=== PATIENT | female | born 1995 | race African-American/Black ===

== ENCOUNTER 2018-10-02 07:18 | Inpatient (IN) | payer MEDICAID ==
[2018-10-02] MEDS ORDERED: Lidocaine 1% 50 ML MDV INJECT ONE (07:36)
[2018-10-02] MEDS ORDERED: Ondansetron 4 MG/2 ML SDV IVPUSH PRN (07:36)
[2018-10-02] MEDS ORDERED: Sodium Chloride 0.9% 10 ML Syringe FLUSH PRN (07:36)
[2018-10-02] MEDS ORDERED: Oxytocin/Lactated Ringers 10 UNIT/1,000 ML BAG IV SCH ×2 (07:45)
[2018-10-02] MEDS: Lactated Ringers 1,000 ML IV SCH ×2 (08:00→17:38)
[2018-10-02] MEDS ORDERED: Diphtheria,Pertussis(Acell),Tetanus Vaccine 0.5 ML SDV IM ONE (09:01)
[2018-10-02] MEDS ORDERED: ePHEDrine 50 MG/ML SDV IVPUSH PRN (11:04)
[2018-10-02] MEDS ORDERED: diphenhydrAMINE 50 MG/ML SDV IVPUSH PRN (11:04)
--- NOTE | 2018-10-02 11:10 | PCM.PREANE ---
Preanesthetic Assessment - Procedure Proposed Procedure: mana - Anesthesia/Transfusion/Family Hx Anesthesia History: No Prior Anesthesia Family History of Anesthesia Reaction: No Transfusion History: No Prior Transfusion(s) - Review of Systems General: No Symptoms Pulmonary: No Symptoms Cardiovascular: No Symptoms Gastrointestinal: No Symptoms Neurological: No Symptoms Other: Reports: None - Physical Assessment Vital Signs: Last Vital Signs Temp 97.0 F 10/02/18 07:36 Pulse 107 H 10/02/18 07:36 Resp 18 10/02/18 07:36 BP 128/82 10/02/18 07:36 Pulse Ox 100 10/02/18 07:36 Height: 5 ft 3 in Weight: 69.428 kg ASA Class: 2 Mental Status: Alert & Oriented x3 Airway Class: Mallampati = 1 Dentition: Reports: Normal Dentition Thyro-Mental Finger Breadths: 3 Mouth Opening Finger Breadths: 3 ROM/Head Extension: Full Lungs: Clear to Auscultation, Normal Respiratory Effort Cardiovascular: Regular Rate, Regular Rhythm - Lab Values: Laboratory Last Values WBC 7.14 K/mm3 (3.98-10.04) 10/02/18 07:48 RBC 3.65 M/mm3 (3.98-5.22) L 10/02/18 07:48 Hgb 10.8 gm/L (11.2-15.7) L 10/02/18 07:48 Hct 31.5 % (34.1-44.9) L 10/02/18 07:48 MCV 86.3 fl (79.4-94.8) 10/02/18 07:48 MCH 29.6 pg (25.6-32.2) 10/02/18 07:48 MCHC 34.3 g/dl (32.2-35.5) 10/02/18 07:48 RDW Std Deviation 38.0 fL (36.4-46.3) 10/02/18 07:48 Plt Count 246 K/mm3 (182-369) 10/02/18 07:48 MPV 9.5 fl (9.4-12.3) 10/02/18 07:48 Neut % (Auto) 66.6 % (34.0-71.1) 10/02/18 07:48 Lymph % (Auto) 19.2 % (19.3-51.7) L 10/02/18 07:48 Howell % (Auto) 12.3 % (4.7-12.5) 10/02/18 07:48 Eos % (Auto) 1.4 (0.7-5.8) 10/02/18 07:48 Baso % (Auto) 0.1 % (0.1-1.2) 10/02/18 07:48 Neut # (Auto) 4.75 K/mm3 (1.56-6.13) 10/02/18 07:48 Lymph # (Auto) 1.37 K/mm3 (1.18-3.74) 10/02/18 07:48 Howell # (Auto) 0.88 K/mm3 (0.24-0.36) H 10/02/18 07:48 Eos # (Auto) 0.10 K/mm3 (0.04-0.36) 10/02/18 07:48 Baso # (Auto) 0.01 K/mm3 (0.01-0.08) 10/02/18 07:48 - Allergies Allergies/Adverse Reactions: Allergies Allergy/AdvReac Type Severity Reaction Status Date / Time No Known Allergies Allergy Verified 10/02/18 07:35 - Blood Blood Available: No - Acknowledgements Anesthesia Type Planned: Epidural Pt an Appropriate Candidate for the Planned Anesthesia: Yes Alternatives and Risks of Anesthesia Discussed w Pt/Guardian: Yes Pt/Guardian Understands and Agrees with Anesthesia Plan: Yes PreAnesthesia Questionnaire - Past Health History Medical/Surgical History: Denies Medical/Surgical History Cardiovascular History: Reports: None Respiratory History: Reports: None Gastrointestinal History: Reports: GERD SPRING BENDER History: Reports: : 1 (40 weeks) Para: 0 Musculoskeletal History: Reports: None Psychiatric History: Reports: None Oncologic (Cancer) History: Reports: None - History Comment History Comment: tums prn - SUBSTANCE USE Smoking Status *Q: Never Smoker Tobacco Use Within Last Twelve Months: No Second Hand Smoke Exposure: No Days Per Week of Alcohol Use: 0 Recreational Drug Use History: No - HOME MEDS Home Medications: Home Meds PNV95/Ferrous Fumarate/FA [ Tablet] 1 tab PO DAILY 10/02/18 [History] - CURRENT (IN HOUSE) MEDS Current Meds: Current Medications Lactated Ringer's (Ringers, Lactated) 1,000 mls @ 100 mls/hr IV ASDIRECTED NETO Last Admin: 10/02/18 08:00 Dose: 100 mls/hr Oxytocin/Lactated Ringer's (Pitocin In Lr 10 Units/1,000 Ml) 10 unit in 1,000 mls @ 100 mls/hr IV .CONTINUOUS NETO Oxytocin/Lactated Ringer's (Pitocin In Lr 10 Units/1,000 Ml) 10 unit in 1,000 mls @ 12 mls/hr IV TITRATE NETO; Protocol Last Titration: 10/02/18 10:56 Dose: 6 munits/min, 36 mls/hr Nalbuphine HCl (Nubain) 10 mg IVPUSH Q2H PRN PRN Reason: Pain Ondansetron HCl (Zofran) 4 mg IVPUSH Q4H PRN PRN Reason: Nausea/Vomiting Sodium Chloride (Saline Flush) 10 ml FLUSH ASDIRECTED PRN PRN Reason: Keep Vein Open Discontinued Medications Diphtheria/Tetanus/Acell Pertussis (Adacel) 0.5 ml IM .ONCE ONE Stop: 10/02/18 09:02 Lidocaine HCl (Xylocaine 1%) 50 ml INJECT ONETIME ONE Stop: 10/02/18 07:37
[2018-10-02] MEDS: Nalbuphine 10 MG/1 ML Vial IVPUSH PRN ×2 (13:55→16:58)
--- NOTE | 2018-10-02 18:00 | PCM.LDHP ---
L&D History of Present Illness - General Date of Service: 10/02/18 Admit Problem/Dx: Patient Status Order with Admit Dx/Problem 10/02/18 07:36 Patient Status [ADT] Routine Admission Diagnosis/Problem Admission Diagnosis/Problem 10/02/18 17:54 Melanie is a 22-year-old 1 para 0 -Uzbek female who is admitted for elective induction of labor at 40-2/7 weeks gestational age with an CARY of . Source of Information: Patient History Limitations: Reports: No Limitations - History of Present Illness Introduction:: Melanie is a 22-year-old 1 para 0 -Uz[place] female who is admitted for elective induction of labor at 40-2/7 weeks gestational age with an CARY of .Procedure induction of labor including risks, benefits, alternatives of care including line for natural onset of labor all discussed with patient. She appears understand and wishes to proceed. SLEEP TECH history: 1 para 0. CARY 09/30/2018 is based upon several early ultrasounds. Patient transferred care in to our clinic at approximately 37 weeks gestational age having moved from [place] to [place]. She reports no problems with her care. She reports her ultrasounds have supported her CARY of 09/30/2018. Her 1 hour GTT was normal. Her fundal height growth has been appropriate and her weight gain has been within normal limits. She desires a natural labor. Her group B strep screen was negative on 09/26/2018. She plans to breast-feed. Allergies: none Medications: vitamins daily Past medical history: Unremarkable. Past surgical history: Unremarkable Family history: Mother and father are alive and well. There are no abnormalities of bleeding, clotting, anesthesia, noted in the family. Social history: Patient is single. Her significant other is due Therese Hill. She lives in [place]. She does not work outside the home. She denies any significant amounts alcohol, drugs or tobacco. Review of systems: In general patient has no complaints. She reports good activity. Occasional contractions are noted. Skin: Negative Lungs: No infectious symptoms or shortness of breath Cardiovascular: No chest pain or exercise intolerance Breasts: No lumps, changes in size, pain, dimpling, discharge or axillary or supraclavicular concerns. Changes associated with only. GI: Negative : Increase in uterine size secondary to . Musculoskeletal: Negative Neurological: Negative In general the patient is well-developed, well-nourished, pleasant female of stated age in no acute distress. Skin is warm dry without lesions. HEENT, neck and back within normal limits. Lungs are clear with good breath sounds in all lung egan. Cardiovascular exam shows regular and rhythm without murmurs. Breast exam deferred. Abdomen is gravid. Fundal height on last evaluation in clinic was 39.5 cm. Baby in vertex presentation. Genital exam on admission shows cervix to be 2 cm, 70% effaced, soft, mid position, -3 station. Artificial rupture membranes is undertaken after short period of Pitocin induction. Clear amniotic fluid resulted. Extremities and neurological exam are grossly within normal limits. Pain Score: 10 - Related Data Allergies/Adverse Reactions: Allergies Allergy/AdvReac Type Severity Reaction Status Date / Time No Known Allergies Allergy Verified 10/02/18 07:35 Home Medications: Home Meds PNV95/Ferrous Fumarate/FA [ Tablet] 1 tab PO DAILY 10/02/18 [History] Past Medical History - Past Health History Medical/Surgical History: Denies Medical/Surgical History Cardiovascular History: Reports: None Respiratory History: Reports: None Gastrointestinal History: Reports: GERD SLEEP TECH History: Reports: Musculoskeletal History: Reports: None Psychiatric History: Reports: None Oncologic (Cancer) History: Reports: None - History Comment History Comment: tameka yang Social & Family History - Tobacco Use Smoking Status *Q: Never Smoker Second Hand Smoke Exposure: No - Caffeine Use Caffeine Use: Reports: Soda - Alcohol Use Days Per Week of Alcohol Use: 0 - Recreational Drug Use Recreational Drug Use: No H&P Review of Systems - Review of Systems: Review Of Systems: See Below L&D Exam - Exam Exam: See Below - Vital Signs Vital Signs: Last Vital Signs Temp 36.1 C 10/02/18 07:36 Pulse 107 H 10/02/18 07:36 Resp 18 10/02/18 07:36 BP 128/82 10/02/18 07:36 Pulse Ox 100 10/02/18 07:36 Weight: 69.428 kg - Patient Data Lab Results Last 24 hrs: Laboratory Results - last 24 hr 10/02/18 Range/Units 07:48 WBC 7.14 (3.98-10.04) K/mm3 RBC 3.65 L (3.98-5.22) M/mm3 Hgb 10.8 L (11.2-15.7) gm/L Hct 31.5 L (34.1-44.9) % MCV 86.3 (79.4-94.8) fl MCH 29.6 (25.6-32.2) pg MCHC 34.3 (32.2-35.5) g/dl RDW Std Deviation 38.0 (36.4-46.3) fL Plt Count 246 (182-369) K/mm3 MPV 9.5 (9.4-12.3) fl Neut % (Auto) 66.6 (34.0-71.1) % Lymph % (Auto) 19.2 L (19.3-51.7) % Kinney % (Auto) 12.3 (4.7-12.5) % Eos % (Auto) 1.4 (0.7-5.8) Baso % (Auto) 0.1 (0.1-1.2) % Neut # (Auto) 4.75 (1.56-6.13) K/mm3 Lymph # (Auto) 1.37 (1.18-3.74) K/mm3 Kinney # (Auto) 0.88 H (0.24-0.36) K/mm3 Eos # (Auto) 0.10 (0.04-0.36) K/mm3 Baso # (Auto) 0.01 (0.01-0.08) K/mm3 Result Diagrams: 10/02/18 07:48 Problem List Initiated/Reviewed/Updated: Yes Orders Last 24hrs: Active Orders 24 hr Category Date Time Status Patient Status [ADT] Routine ADT 10/02/18 07:36 Active Activity as Tolerated [RC] PFP Care 10/02/18 07:36 Active Communication Order [RC] ASDIRECTED Care 10/02/18 07:36 Active Heart Tones [RC] ASDIRECTED Care 10/02/18 07:37 Active Non Stress Test [RC] PER UNIT ROUTINE Care 10/02/18 07:36 Active Notify Provider [RC] ASDIRECTED Care 10/02/18 11:04 Active Notify Provider [RC] PFP Care 10/02/18 07:36 Active Notify Provider [RC] PRN Care 10/02/18 07:36 Active Peripheral IV Care [RC] . DIRECTED Care 10/02/18 07:37 Active Urinary Catheter Assessment [RC] ASDIRECTED Care 10/02/18 07:36 Active Vaccines to be Administered [RC] PER UNIT ROUTINE Care 10/02/18 09:02 Active Vital Signs [RC] PER UNIT ROUTINE Care 10/02/18 07:36 Active Regular Diet [DIET] Diet 10/02/18 Lunch Active RAPID PLASMA REAGIN,RPR [CHEM] Routine Lab 10/02/18 07:48 Received Bupivacaine/fentaNYL/NS [fentaNYL/Bupivacaine/NS 2 MCG- Med 10/02/18 11:04 Active 0.125% 100 ML] 100 ml EPIDUR ASDIRECTED PRN Lactated Ringers [Ringers, Lactated] 1,000 ml Med 10/02/18 07:45 Active IV ASDIRECTED Nalbuphine [Nubain] Med 10/02/18 07:36 Active 10 mg IVPUSH Q2H PRN Ondansetron [Zofran] Med 10/02/18 07:36 Active 4 mg IVPUSH Q4H PRN Oxytocin/Lactated Ringers [Pitocin in LR 10 Units/1,000 Med 10/02/18 07:45 Active ML] 10 unit in 1,000 ml IV .CONTINUOUS Oxytocin/Lactated Ringers [Pitocin in LR 10 Units/1,000 Med 10/02/18 07:45 Active ML] 10 unit in 1,000 ml IV TITRATE Sodium Chloride 0.9% [Saline Flush] Med 10/02/18 07:36 Active 10 ml FLUSH ASDIRECTED PRN diphenhydrAMINE [Benadryl] Med 10/02/18 11:04 Active 25 mg IVPUSH Q6H PRN ePHEDrine [ePHEDrine sulfate] Med 10/02/18 11:04 Active 5 mg IVPUSH ASDIRECTED PRN fentaNYL [Sublimaze] Med 10/02/18 11:04 Active 100 mcg EPIDUR Q3H PRN Electronic Heart Tones Ext w TOCO [WOMSER] Oth 10/02/18 07:36 Ordered Routine Electronic Heart Tones Internal [WOMSER] Per Unit Oth 10/02/18 07:36 Ordered Routine Peripheral IV Insertion Adult [OM.PC] Routine Ot 10/02/18 07:36 Ordered Resuscitation Status Routine Resus Stat 10/02/18 07:36 Ordered Medication Orders Diphenhydramine HCl (Benadryl) 25 mg IVPUSH Q6H PRN PRN Reason: pruritis Ephedrine Sulfate (Ephedrine Sulfate) 5 mg IVPUSH ASDIRECTED PRN PRN Reason: Hypotension Fentanyl (Sublimaze) 100 mcg EPIDUR Q3H PRN PRN Reason: Pain Fentanyl/Bupivacaine HCl (Fentanyl/Bupivacaine/Ns 2 Mcg-0.125% 100 Ml) 100 ml EPIDUR ASDIRECTED PRN PRN Reason: Pain Lactated Ringer's (Ringers, Lactated) 1,000 mls @ 100 mls/hr IV ASDIRECTED NETO Last Admin: 10/02/18 17:38 Dose: 100 mls/hr Infusion: 10/02/18 17:38 Dose: 100 mls/hr Admin: 10/02/18 08:00 Dose: 100 mls/hr Oxytocin/Lactated Ringer's (Pitocin In Lr 10 Units/1,000 Ml) 10 unit in 1,000 mls @ 100 mls/hr IV .CONTINUOUS NETO Oxytocin/Lactated Ringer's (Pitocin In Lr 10 Units/1,000 Ml) 10 unit in 1,000 mls @ 12 mls/hr IV TITRATE NETO; Protocol Last Titration: 10/02/18 17:00 Dose: 13 munits/min, 78 mls/hr Titration: 10/02/18 16:30 Dose: 12 munits/min, 72 mls/hr Titration: 10/02/18 14:59 Dose: 10 munits/min, 60 mls/hr Titration: 10/02/18 12:10 Dose: 8 munits/min, 48 mls/hr Titration: 10/02/18 10:56 Dose: 6 munits/min, 36 mls/hr Titration: 10/02/18 09:30 Dose: 4 munits/min, 24 mls/hr Admin: 10/02/18 08:10 Dose: 2 munits/min, 12 mls/hr Nalbuphine HCl (Nubain) 10 mg IVPUSH Q2H PRN PRN Reason: Pain Last Admin: 10/02/18 16:58 Dose: 10 mg Admin: 10/02/18 13:55 Dose: 10 mg Ondansetron HCl (Zofran) 4 mg IVPUSH Q4H PRN PRN Reason: Nausea/Vomiting Sodium Chloride (Saline Flush) 10 ml FLUSH ASDIRECTED PRN PRN Reason: Keep Vein Open Assessment/Plan Comment:: 1. 40-2/7 week intrauterine , admitted for elective induction of labor. 2. Group B strep screen negative. 3. Patient plans to breast-feed. 4. Patient is okay with epidural in for labor analgesia. Plan: 1. Pitocin/artificial rupture membranes induction of labor. 2. Support breast-feeding incision 3. Epidural when necessary for pain control in Labor. 4. Routine labor care.
[2018-10-02] MEDS: Bupivacaine/fentaNYL/NS 100 ML Bag EPIDUR PRN (18:19)
[2018-10-02] MEDS: fentaNYL 100 MCG/2 ML SDV EPIDUR PRN (18:19)
[2018-10-02] MEDS: Oxytocin/Lactated Ringers 20 UNIT/1,000 ML BAG IV SCH (22:44)
[2018-10-03] MEDS ORDERED: Bupivacaine 0.25% 10 ML SDV ONE ×2
[2018-10-03] MEDS: Bupivacaine/fentaNYL/NS 100 ML Bag EPIDUR PRN (01:46)
[2018-10-03] MEDS ORDERED: fentaNYL 100 MCG/2 ML SDV EPIDUR PRN (03:54)
[2018-10-03] MEDS: fentaNYL 100 MCG/2 ML SDV EPIDUR PRN (03:57)
[2018-10-03] MEDS: Lactated Ringers 1,000 ML IV SCH (04:37)
[2018-10-03] MEDS: Oxytocin/Lactated Ringers 20 UNIT/1,000 ML BAG IV SCH (10:11)
[2018-10-03] MEDS ORDERED: Ibuprofen 600 MG Tab PO PRN (10:12)
--- NOTE | 2018-10-03 12:08 | PCM48HPAN ---
Post Anesthesia Note - EVALUATION WITHIN 48HRS OF ANESTHETIC Vital Signs in Normal Range: Yes Patient Participated in Evaluation: Yes Respiratory Function Stable: Yes Airway Patent: Yes Cardiovascular Function Stable: Yes Hydration Status Stable: Yes Pain Control Satisfactory: Yes Nausea and Vomiting Control Satisfactory: Yes Mental Status Recovered: Yes Vital Signs: Last Vital Signs Temp 36.1 C 10/02/18 07:36 Pulse 107 H 10/02/18 07:36 Resp 18 10/02/18 07:36 BP 128/82 10/02/18 07:36 Pulse Ox 100 10/02/18 07:36 Above vital signs from am vitals noted and reviewed. - COMMENTS/OBSERVATIONS Free Text/Narrative:: Patient satisfied with epidural experience.
[2018-10-03] MEDS ORDERED: Benzocaine/Menthol 20%-0.5% Spray 56 GM Canister TOP PRN ×2 (13:41→15:08)
[2018-10-03] MEDS ORDERED: Witch Hazel Medicated Pads 40/Jar TOP PRN ×2 (13:41→15:08)
--- NOTE | 2018-10-03 15:03 | PCM.SN ---
- Free Text/Narrative Note: Melanie is a 22-year-old 1 para 0 -Belizean female who is admitted for elective induction of labor on 10/02/2018 at 40-2/7 weeks gestational age with an CARY of 09/30/2018. Procedure induction of labor including risks, benefits , alternatives of care including line for natural onset of labor all discussed with patient. She appears understand and wishes to proceed.Labor was started with artificial rupture membranes and Pitocin induction. Patient made very slow progress throughout the course of the next 24 hours. She had an epidural for labor analgesia. She became completely dilated by approximately 0745 hrs. on . She pushed well and at 0933 hrs. on 10/03/2018 patient delivered a viable, dean, male with Apgars of cyst 2 and 7 in a direct occiput anterior position. B was placed on mom's abdomen for a short period time until the baby's father cut the umbilical cord. The baby was then taken to the warmer for oxygen and resuscitation where the baby received positive pressure ventilation for short period time. heart rate was found to be above 100 and O2 by blow-by was then given. The baby responded well. The patient herself was given IV Pitocin at 500 mL per hour to facilitate increase uterine tone and decrease likelihood of bleeding. Cord blood was obtained. The umbilical cord was found to have 3 blood vessels. The placenta delivered in a Branch presentation, appeared intact and complete and was discarded per patient desire. The patient had a right vaginal laceration which is superficial in nature and extended on to the labia somewhat. This was repaired using 3-0 Monocryl in a running fashion. Labor epidural was used for laceration repair anesthesia. Patient tolerated this well. Estimated blood loss was 100 mL. Patient plans to breast-feed. Condition: Good
[2018-10-03] MEDS ORDERED: Lanolin 100% Cream 7 GM Tube TOP PRN (15:08)
[2018-10-03] MEDS ORDERED: Docusate Sodium 100 MG Cap PO PRN (15:08)
[2018-10-03] MEDS ORDERED: Acetaminophen 325 MG Tab PO PRN (15:08)
[2018-10-03] MEDS: Ibuprofen 600 MG Tab PO PRN (23:26)
[2018-10-04] MEDS ORDERED: Prenatal Multivitamin with Calcium/Folic Acid/Iron Tab PO SCH (09:00)
[2018-10-04] MEDS: Ibuprofen 600 MG Tab PO PRN (09:12)
--- NOTE | 2018-10-04 11:57 | PCM.DCSUM1 ---
Discharge Summary - Hospital Course Free Text/Narrative:: Melanie is a 22-year-old 1 para 0 -Polish female who is admitted for elective induction of labor on 10/02/2018 at 40-2/7 weeks gestational age with an CARY of 09/30/2018. Procedure induction of labor including risks, benefits , alternatives of care including line for natural onset of labor all discussed with patient. She appears understand and wishes to proceed.Labor was started with artificial rupture membranes and Pitocin induction. Patient made very slow progress throughout the course of the next 24 hours. She had an epidural for labor analgesia. She became completely dilated by approximately 0745 hrs. on . She pushed well and at 0933 hrs. on 10/03/2018 patient delivered a viable, dean, male infant with Apgars of cyst 2 and 7 in a direct occiput anterior position. B was placed on mom's abdomen for a short period time until the baby's father cut the umbilical cord. The baby was then taken to the warmer for oxygen and resuscitation where the baby received positive pressure ventilation for short period time. heart rate was found to be above 100 and O2 by blow-by was then given. The baby responded well. The patient herself was given IV Pitocin at 500 mL per hour to facilitate increase uterine tone and decrease likelihood of bleeding. Cord blood was obtained. The umbilical cord was found to have 3 blood vessels. The placenta delivered in a Branch presentation, appeared intact and complete and was discarded per patient desire. The patient had a right vaginal laceration which is superficial in nature and extended on to the labia somewhat. This was repaired using 3-0 Monocryl in a running fashion. Labor epidural was used for laceration repair anesthesia. Patient tolerated this well. Estimated blood loss was 100 mL. Patient plans to breast-feed. patient is doing very well. She is nursing without problems, has minimal lochia, was voiding well. Epidural has worn off without problems. She is ambulating without concerns. She is desiring discharge home. Condition: Good Diagnosis: Stroke: No - Discharge Data Discharge Date: 10/04/18 Discharge Disposition: Home, Self-Care 01 Condition: Good - Patient Instructions Diet: Regular Diet as Tolerated (Nursing diet with increase calories calcium is recommended) Activity: As Tolerated (No intercourse or tampons until bleeding resolves.) Driving: May Drive Today Showering/Bathing: May Shower (may take a bath) Notify Provider of: Fever, Increased Pain, Swelling and Redness, Nausea and/or Vomiting - Discharge Plan Home Medications: Home Meds PNV95/Ferrous Fumarate/FA [ Tablet] 1 tab PO DAILY 10/02/18 [History] Acetaminophen [Tylenol] 650 mg PO Q4H PRN tablet 10/04/18 [Rx] Ibuprofen [Motrin] 600 mg PO Q4H PRN tablet 10/04/18 [Rx] Referrals: Denis De La Cruz MD [Primary Care Provider] - (Return to clinic[facility]. De [facility]4 weeks.) - Discharge Summary/Plan Comment DC Time >30 min.: No Discharge Summary/Plan Comment: Discharge instructions: 1. Discharge home 2. Diet, activity and follow-up discussed with patient. Recommend nursing diet with increased calories and calcium. 3. Precautions given concern increased pain, bleeding, temperature, signs/ symptoms of DVT/PE. 4. Medications per home medication was printed, discussed with and given to the patient. 5. Return to clinic-Dr. De La Cruz[facility] in 2 weeks. Diagnosis: Term -delivered Condition: Good - Patient Data Vitals - Most Recent: Last Vital Signs Temp 36.6 C 10/04/18 09:08 Pulse 74 10/04/18 09:08 Resp 18 10/04/18 09:08 BP 125/93 H 10/04/18 09:08 Pulse Ox 100 10/04/18 09:08 Weight - Most Recent: 69.428 kg I&O - Last 24 hours: Intake & Output 10/03/18 10/04/18 10/04/18 22:59 06:59 14:59 Intake Total 70 Balance 70 Med Orders - Current: Current Medications Acetaminophen (Tylenol) 650 mg PO Q4H PRN PRN Reason: mild pain or fever Benzocaine/Menthol (Dermoplast Pain Relief [place]) 0 gm TOP ASDIRECTED PRN PRN Reason: Perineal Comfort Measure Last Admin: 10/03/18 19:57 Dose: 1 can Docusate Sodium (Colace) 100 mg PO BID PRN PRN Reason: Constipation Emollient Ointment (Lansinoh Hpa) 0 gm TOP ASDIRECTED PRN PRN Reason: Sore Nipples Ibuprofen (Motrin) 600 mg PO Q4H PRN PRN Reason: Mild pain or fever Last Admin: 10/04/18 09:12 Dose: 600 mg Prenat Multivit/[place]/Iron/Folic Ac ( Plus Iron) 1 each PO DAILY NETO Last Admin: 10/04/18 09:04 Dose: 1 each Witch Iza (Tucks) 1 pad TOP ASDIRECTED PRN PRN Reason: Pain Last Admin: 10/03/18 19:57 Dose: 1 container Discontinued Medications Benzocaine/Menthol (Dermoplast Pain Relief [place]) 1 gm TOP ASDIRECTED PRN PRN Reason: Pain Bupivacaine HCl (Sensorcaine-Mpf 0.25%) 10 ml .ROUTE .STK-MED ONE Stop: 10/03/18 00:01 Diphenhydramine HCl (Benadryl) 25 mg IVPUSH Q6H PRN PRN Reason: pruritis Diphtheria/Tetanus/Acell Pertussis (Adacel) 0.5 ml IM .ONCE ONE Stop: 10/02/18 09:02 Ephedrine Sulfate (Ephedrine Sulfate) 5 mg IVPUSH ASDIRECTED PRN PRN Reason: Hypotension Fentanyl (Sublimaze) 100 mcg EPIDUR Q3H PRN PRN Reason: Pain Last Admin: 10/03/18 03:57 Dose: 100 mcg Fentanyl (Sublimaze) 100 mcg EPIDUR Q3H PRN PRN Reason: Pain Fentanyl/Bupivacaine HCl (Fentanyl/Bupivacaine/Ns 2 Mcg-0.125% 100 Ml) 100 ml EPIDUR ASDIRECTED PRN PRN Reason: Pain Last Admin: 10/03/18 01:46 Dose: 100 ml Lactated Ringer's (Ringers, Lactated) 1,000 mls @ 100 mls/hr IV ASDIRECTED NETO Last Admin: 10/03/18 04:37 Dose: 100 mls/hr Oxytocin/Lactated Ringer's (Pitocin In Lr 10 Units/1,000 Ml) 10 unit in 1,000 mls @ 100 mls/hr IV .CONTINUOUS NETO Oxytocin/Lactated Ringer's (Pitocin In Lr 10 Units/1,000 Ml) 10 unit in 1,000 mls @ 12 mls/hr IV TITRATE NETO; Protocol Last Titration: 10/02/18 22:15 Dose: 24 munits/min, 144 mls/hr Oxytocin/Lactated Ringer's (Pitocin In Lr 20 Units/1,000 Ml) 20 unit in 1,000 mls @ 72 mls/hr IV TITRATE NETO; Protocol Last Admin: 10/03/18 10:11 Dose: 500 munits/min, 1,500 mls/hr Ibuprofen (Motrin) 600 mg PO Q6H PRN PRN Reason: Pain Lidocaine HCl (Xylocaine 1%) 50 ml INJECT ONETIME ONE Stop: 10/02/18 07:37 Last Admin: 10/03/18 19:48 Dose: Not Given Nalbuphine HCl (Nubain) 10 mg IVPUSH Q2H PRN PRN Reason: Pain Last Admin: 10/02/18 16:58 Dose: 10 mg Ondansetron HCl (Zofran) 4 mg IVPUSH Q4H PRN PRN Reason: Nausea/Vomiting Sodium Chloride (Saline Flush) 10 ml FLUSH ASDIRECTED PRN PRN Reason: Keep Vein Open Fletcher Couch (Tucks) 1 pad TOP ASDIRECTED PRN PRN Reason: Pain
[2018-10-04] MEDS ORDERED: Diphtheria,Pertussis(Acell),Tetanus Vaccine 0.5 ML SDV IM ONE (14:14)
== END 2018-10-04 15:00 | disposition home or self-care (01) | DRG 806 ==
LOC: UNDOADMOB 07:18 → JD.OB 07:18 → OBSVTOIN 09:33 → INTOOBSV 09:33 → JD.OB 10-03 09:33 → OBSVTOIN 10-03 09:33 → JD.OB 10-03 09:59 → JD.MS 10-04 06:05
PROVIDERS: ADMIT Obstetrics & Gynecology; ATTEND Obstetrics & Gynecology
PROC: 10E0XZZ Delivery of Products of Conception, External Approach (ICD-10-PCS; principal; 2018-10-03)
PROC: 10907ZC Drainage of Amniotic Fluid, Therapeutic from Products of Conception, Via Natural or Artificial Opening (ICD-10-PCS; 2018-10-03)
PROC: 3E033VJ Introduction of Other Hormone into Peripheral Vein, Percutaneous Approach (ICD-10-PCS; 2018-10-03)
PROC: 0UQGXZZ Repair Vagina, External Approach (ICD-10-PCS; 2018-10-03)
DX: O48.0 Post-term pregnancy (principal); O71.4 Obstetric high vaginal laceration alone; Z37.0 Single live birth; Z3A.40 40 weeks gestation of pregnancy
CPT/HCPCS: 36415; 51702; 59025; 59409; 85025; 86592; 90471; 90715; A9270-GY; J2300; J2590; J3010; J3490; J7120

== ENCOUNTER 2018-10-09 11:01 | Emergency (ER) | payer SELFPAY ==
[2018-10-09] MEDS ORDERED: Sodium Chloride 0.9% 10 ML Syringe FLUSH PRN (12:05)
--- NOTE | 2018-10-09 14:03 | EDM.PDOC ---
ED HPI GENERAL MEDICAL PROBLEM - General Chief Complaint: Abdominal Pain Stated Complaint: ABDOMIN PAIN Time Seen by Provider: 10/09/18 11:25 Source of Information: Reports: Patient History Limitations: Reports: No Limitations - History of Present Illness INITIAL COMMENTS - FREE TEXT/NARRATIVE: 22-year-old female presents for evaluation and treatment of right upper quadrant and epigastric pain. Patient reports that the pain started yesterday. Lasted all day yesterday and subsided on its own around 0500 this morning. At this time she is pain free. She identifies pain to the right upper quadrant and epigastric area. She reports associated symptoms of nausea, vomiting and dizziness. She vomited yesterday but has not vomited today. No chest pain, shortness of breath, fevers, chills or any syncope. She did try some ibuprofen for pain but this did not seem to help. States that the pain does not radiate into her back, chest or neck. She denies any urinary symptoms. Last bowel movement was yesterday. Patient gave via spontaneous vaginal delivery about one week ago. She's not have any history of this during her . [employer] DEVEL[employer] is Dr. De La Cruz. She is supposed to follow up with him in within the next 2 weeks. Patient is . Right Upper Abdomen Pain Score (Numeric/FACES): 0 - Related Data Allergies Allergy/AdvReac Type Severity Reaction Status Date / Time No Known Allergies Allergy Verified 10/09/18 11:17 Home Meds: Home Meds Acetaminophen [Tylenol] 650 mg PO Q4H PRN tablet 10/04/18 [Rx] Ibuprofen [Motrin] 600 mg PO Q4H PRN tablet 10/04/18 [Rx] Ibuprofen [Motrin] 600 mg PO Q6H PRN #20 tab 10/09/18 [Rx] Omeprazole 20 mg PO DAILY #20 cap.cr 10/09/18 [Rx] Ondansetron [Zofran ODT] 4 mg PO Q6H PRN #20 tab.dis 10/09/18 [Rx] Past Medical History - Past Health History Medical/Surgical History: Denies Medical/Surgical History Cardiovascular History: Reports: None Respiratory History: Reports: None Gastrointestinal History: Reports: GERD [employer] DEVELOPER History: Reports: Musculoskeletal History: Reports: None Psychiatric History: Reports: None Oncologic (Cancer) History: Reports: None - History Comment History Comment: tums prn Social & Family History - Tobacco Use Smoking Status *Q: Never Smoker - Caffeine Use Caffeine Use: Reports: Coffee, Energy Drinks, Soda, Tea - Recreational Drug Use Recreational Drug Use: No ED ROS GENERAL - Review of Systems Review Of Systems: See Below Constitutional: Denies: Fever, Chills Respiratory: Denies: Shortness of Breath Cardiovascular: Denies: Chest Pain GI/Abdominal: Reports: Abdominal Pain (RUQ), Nausea, Vomiting. Denies: Diarrhea : Denies: Dysuria Musculoskeletal: Denies: Back Pain Neurological: Reports: Dizziness. Denies: Syncope ED EXAM, GI/ABD - Physical Exam Exam: See Below Exam Limited By: No Limitations General Appearance: Alert, WD/WN, No Apparent Distress Ears: Normal External Exam Nose: Normal Inspection Throat/Mouth: Normal Inspection, Normal Lips, Normal Voice, No Airway Compromise Neck: Normal Inspection Respiratory/Chest: No Respiratory Distress, Lungs Clear, Normal Breath Sounds Cardiovascular: Normal Peripheral Pulses, Regular Rate, Rhythm, No Murmur GI/Abdominal Exam: Normal Bowel Sounds, Soft, Tender (RUQ and epigastic), Other (+ valderrama's sign) Neurological: Alert, Oriented, Normal Cognition Psychiatric: Normal Affect, Normal Mood Skin Exam: Warm, Dry, Normal Color Course - Vital Signs Last Recorded V/S: Last Vital Signs Temp 98.4 F 10/09/18 11:18 Pulse 109 H 10/09/18 11:18 Resp 16 10/09/18 11:18 BP 124/81 10/09/18 11:18 Pulse Ox 99 10/09/18 11:18 - Orders/Labs/Meds Labs: Laboratory Tests 10/09/18 10/09/18 Range/Units 12:20 12:20 WBC 11.51 H (3.98-10.04) K/mm3 RBC 3.38 L (3.98-5.22) M/mm3 Hgb 9.9 L (11.2-15.7) gm/L Hct 29.3 L (34.1-44.9) % MCV 86.7 (79.4-94.8) fl MCH 29.3 (25.6-32.2) pg MCHC 33.8 (32.2-35.5) g/dl RDW Std Deviation 37.4 (36.4-46.3) fL Plt Count 348 D (182-369) K/mm3 MPV 9.0 L (9.4-12.3) fl Neut % (Auto) 62.6 (34.0-71.1) % Lymph % (Auto) 17.2 L (19.3-51.7) % Rhea % (Auto) 12.3 (4.7-12.5) % Eos % (Auto) 2.8 (0.7-5.8) Baso % (Auto) 0.3 (0.1-1.2) % Neut # (Auto) 7.20 H (1.56-6.13) K/mm3 Lymph # (Auto) 1.98 (1.18-3.74) K/mm3 Rhea # (Auto) 1.42 H (0.24-0.36) K/mm3 Eos # (Auto) 0.32 (0.04-0.36) K/mm3 Baso # (Auto) 0.04 (0.01-0.08) K/mm3 Manual Slide Review Abnormal smear Sodium 141 (136-145) mEq/L Potassium 3.8 (3.5-5.1) mEq/L Chloride 105 (98-107) mEq/L Carbon Dioxide 26 (21-32) mEq/L Anion Gap 13.8 (5-15) BUN 11 (7-18) mg/dL Creatinine 0.6 (0.55-1.02) mg/dL Est Cr Clr Drug Dosing 123.72 mL/min Estimated GFR (MDRD) > 60 (>60) mL/min BUN/Creatinine Ratio 18.3 H (14-18) Glucose 100 (74-106) mg/dL Calcium 9.4 (8.5-10.1) mg/dL Total Bilirubin 0.2 (0.2-1.0) mg/dL GGT 21 (5-55) U/L AST 13 L (15-37) U/L ALT 23 (14-59) U/L Alkaline Phosphatase 146 H (46-116) U/L C-Reactive Protein 4.3 H* (<1.0) mg/dL Total Protein 7.2 (6.4-8.2) g/dl Albumin 2.6 L (3.4-5.0) g/dl Globulin 4.6 gm/dL Albumin/Globulin Ratio 0.6 L (1-2) Lipase 103 (73-393) U/L Meds: Medications Discontinued Medications Generic Name Dose Route Start Last Admin Trade Name Jennifer PRN Reason Stop Dose Admin Sodium Chloride 10 ml 10/09/18 12:05 Saline Flush FLUSH ASDIRECTED PRN Keep Vein Open - Re-Assessments/Exams Free Text/Narrative Re-Assessment/Exam: 10/09/18 14:01 I reviewed the labs that the patient. I feel she needs an abdominal ultrasound to further evaluate her gallbladder with the location of her pain. She has been pain-free since entering the ER but states that she can feel that it is about to come on. She is anxious to go at this time. She also ate about an hour prior to arrival in the ER. we will schedule the ultrasound as an outpatient. No emergent reason for an ultrasound today with her being pain free at this time. I 'll prescribe her some ibuprofen 800 as she is breast-feeding and will have her follow-up in the clinic. Ultrasound scheduled for Sunday at 9:30. Reviewed plan with the patient and she is okay with this. Discharge instructions as documented. Departure - Departure Time of Disposition: 14:03 Disposition: Home, Self-Care 01 Condition: Good Clinical Impression: Abdominal pain, Positive Valderrama's Sign - Discharge Information *PRESCRIPTION DRUG MONITORING PROGRAM REVIEWED*: No *COPY OF PRESCRIPTION DRUG MONITORING REPORT IN PATIENT TOMASZ: No Prescriptions: Ibuprofen [Motrin] 600 mg PO Q6H PRN #20 tab PRN Reason: Pain Omeprazole 20 mg PO DAILY #20 cap.cr Ondansetron [Zofran ODT] 4 mg PO Q6H PRN #20 tab.dis PRN Reason: Nausea Instructions: Abdominal Pain, Adult, [id number] Referrals: Denis De La Cruz MD [Primary Care Provider] - Willa Leigh PA-C [Physician Cell Assembly Pinner] - Forms: ED Department Discharge Additional Instructions: ibuprofen 1 tab PO every 6 hours prn pain Zofran 1 tab sublingual every 6 hours as needed for nausea. an ultrasound of your gallbladder has been scheduled for Sunday at 9:30. Please arrive at the [facility] in check and there. These results will be sent to a primary care provider as well as your [employer]ELOPER. Recommend following up in clinic with primary care for these results and further management of your pain. Recommend Willa Leigh at the clinic. Call [phone] to schedule with her. omeprazole 1 tab daily, this medication will protect your stomach. please return to the ER if your symptoms change or worsen.
== END 2018-10-09 14:17 | disposition home or self-care (01) ==
LOC: JD.ED 11:01
DX: R10.13 Epigastric pain (principal); R10.11 Right upper quadrant pain; R19.8 Other specified symptoms and signs involving the digestive system and abdomen; K21.9 Gastro-esophageal reflux disease without esophagitis; Z79.899 Other long term (current) drug therapy
CPT/HCPCS: 36415; 80053; 82977; 83690; 85025; 86140; 99284